=== PATIENT | male | born 1975 | race American Indian/Alaskan Native ===

== ENCOUNTER 2017-12-01 02:46 | Emergency (ER) | payer MEDICAID, MEDICARE, OTHER ==
[2017-12-01 02:47] VITALS: BMI 23.1
--- NOTE | 2017-12-01 04:43 | ED PDOC ---
Arrival/HPI - General EM Caveat: Intoxicated, Uncooperative <Adrien Landry - Last Filed: 12/01/17 05:29> - General Historian: Patient EM Caveat: Intoxicated, Uncooperative - History of Present Illness Time/Duration: Prior to Arrival Symptom Onset: Sudden Symptom Course: Unchanged Quality: Aching Severity Level: 10 <Javier Cowart - Last Filed: 12/01/17 06:29> - General Chief Complaint: Lower Extremity Problem/Injury Time Seen by Provider: 12/01/17 03:02 - History of Present Illness Narrative History of Present Illness (Text): 12/01/17 04:39 Patient is a 42 M who presents under the influence of alcohol with complaints of pain in his right foot after slipping on the curb of the sidewalk. Full HPI not obtained due to patient being under the influence. (Javier Cowart) Past Medical History - Provider Review Nursing Documentation Reviewed: Yes - Infectious Disease Hx of Infectious Diseases: None - Tetanus Immunization Tetanus Immunization: Unknown - Psychiatric Hx Depression: No Hx Emotional Abuse: No Hx Physical Abuse: No Hx Substance Use: Yes - Suicidal Assessment Feels Threatened In Home Enviroment: No <Javier Cowart - Last Filed: 12/01/17 06:29> Family/Social History - Physician Review Nursing Documentation Reviewed: Yes Family/Social History: Other (non-contributory) Smoking Status: Light Smoker < 10 Cigarettes Daily Hx Alcohol Use: Yes Frequency of alcohol use: Socially Hx Substance Use: Yes Substance used: marijuana Hx Substance Use Treatment: No <Javier Cowart - Last Filed: 12/01/17 06:29> Allergies/Home Meds <Adrien Landry - Last Filed: 12/01/17 05:29> <Javier Cowart - Last Filed: 12/01/17 06:29> Allergies/Adverse Reactions: Allergies Penicillins Adverse Reaction (Verified 12/01/17 03:04) ANAPHYLAXIS Home Medications: Home Meds Medication Instructions Recorded Confirmed No Known Home Med 12/01/1718 Review of Systems - Physician Review All systems were reviewed & negative as marked: Yes - Review of Systems Systems not reviewed;Unavailable: Intoxicated <Javier Cowart - Last Filed: 12/01/17 06:29> Physical Exam - Physical Exam Physical Exam Limitations: Intoxication, Uncooperative Vital Signs Reviewed: Yes Temperature: Afebrile Blood Pressure: Normal Pulse: Regular Respiratory Rate: Normal Appearance: Positive for: Well-Appearing, Non-Toxic Pain Distress: None Mental Status: Positive for: Agitated - Systems Exam Head: Present: Atraumatic, Normocephalic Pupils: Present: PERRL Extroacular Muscles: Present: EOMI Conjunctiva: Present: Normal Mouth: Present: Moist Mucous Membranes Neck: Present: Normal Range of Motion Respiratory/Chest: Present: Clear to Auscultation Cardiovascular: Present: Regular Rate and Rhythm, Normal S1, S2 Abdomen: Present: Guarding Neurological: Present: GCS=15, CN II-XII Intact, Speech Normal Skin: Present: Induration Psychiatric: Present: Alert, Normal Insight, Agitated, Intoxicated <Javier Cowart - Last Filed: 12/01/17 06:29> Vital Signs Temp Pulse Resp BP Pulse Ox 12/01/17 02:52 98.0 F 98 H 16 108/71 100 Medical Decision Making <Adrien Landry - Last Filed: 12/01/17 05:29> <Javier Cowart - Last Filed: 12/01/17 06:29> ED Course and Treatment: Patient Seen With Resident: In agreement with resident note which contains more details about the patient. Patient was seen and evaluated with resident. Came up with plan and treatment together. 42 year old male presents for alcohol intoxication. Plan: -- Tylenol -- Ankle right 3 views x-ray (Adrien Landry) 12/01/17 04:48 Ibuprofen for pain control Most likely fractured, will order CT lower extremity as well as send X-Ray of right ankle to [facility] for official read (Javier Cowart) - RAD Interpretation Radiology Orders: 12/01/17 03:22 ANKLE RIGHT 3 VIEWS ROUTINE [RAD] Stat 12/01/17 05:42 EXT LOWER W/O CONTRAST RIGHT [CT] Stat - Medication Orders Current Medication Orders: Discontinued Medications Acetaminophen (Tylenol 325mg Tab) 650 mg PO STAT STA Stop: 12/01/17 03:06 Last Admin: 12/01/17 03:10 Dose: 650 mg - Scribe Statement The provider has reviewed the documentation as recorded by the Scribe <Adrien Landry - Last Filed: 12/01/17 05:29> <Javier Cowart - Last Filed: 12/01/17 06:29> - Scribe Statement Raven Flynn Provider Lynda Attestation: All medical record entries made by the Scribe were at my direction and personally dictated by me. I have reviewed the chart and agree that the record accurately reflects my personal performance of the history, physical exam, medical decision making, and the department course for this patient. I have also personally directed, reviewed, and agree with the discharge instructions and disposition. (Adrien Landry) Disposition/Present on Arrival <Adrien Landry - Last Filed: 12/01/17 05:29> - Present on Arrival History of DVT/PE: No History of Uncontrolled Diabetes: No Urinary Catheter: No History of Decub. Ulcer: No History Surgical Site Infection Following: None <Javier Cowart - Last Filed: 12/01/17 06:29> - Disposition Forms: [employer] ([place])
--- NOTE | 2017-12-01 06:55 | CT ---
EXAM: CT Right Lower Extremity Without Intravenous Contrast, Ankle EXAM DATE/TIME: 12/01/2017 5:42 AM CLINICAL HISTORY: 42 years old, male; Injury or trauma; Fall; Initial encounter; Sprain or strain; Ankle; Right TECHNIQUE: Axial computed tomography images of the right ankle without intravenous contrast. All CT scans at this facility use one or more dose reduction techniques, viz.: automated exposure control; ma/kV adjustment per patient size (including targeted exams where dose is matched to indication; i.e. head); or iterative reconstruction technique. Coronal and sagittal reformatted images were created and reviewed. COMPARISON: DX - ANKLE RIGHT 3 VIEWS ROUTINE 2017-12-01 03:31 FINDINGS: Subcutaneous soft tissue swelling surrounds the calcaneus. There is a severely comminuted fracture of the calcaneus with numerous displaced fragments. The posterior aspect of the calcaneus is rotated slightly superiorly best seen on image 35 of sagittal reconstructions. On this image, there appears to be normal articulation with the talus, however more laterally, there is extension of numerous fracture lines into the calcaneal talar joint. Calcaneal fracture lines also extend to the articulation with the cuboid. There are no fractures of the cuboid cell identified. No fractures of the visualized portions of the tibia or fibula. IMPRESSION: Severely comminuted calcaneal fracture as described above.
--- NOTE | 2017-12-01 07:34 | ED PDOC ---
Physical Exam Vital Signs Temp Pulse Resp BP Pulse Ox 12/01/17 06:09 82 13 137/89 100 12/01/17 02:52 98.0 F 98 H 16 108/71 100 Medical Decision Making ED Course and Treatment: 12/01/17 07:00 Patient signed out to me by Dr. Landry. Pending Ortho consult. Patient currently sleeping. Dr. Bejarano paged. 12/01/17 07:05 CT Right Lower Extremity Without Intravenous Contrast, Ankle Creator : RADHIKA WHALEN FINDINGS: Subcutaneous soft tissue swelling surrounds the calcaneus. There is a severely comminuted fracture of the calcaneus with numerous displaced fragments. The posterior aspect of the calcaneus is rotated slightly superiorly best seen on image 35 of sagittal reconstructions. On this image, there appears to be normal articulation with the talus, however more laterally, there is extension of numerous fracture lines into the calcaneal talar joint. Calcaneal fracture lines also extend to the articulation with the cuboid. There are no fractures of the cuboid cell identified. No fractures of the visualized portions of the tibia or fibula. IMPRESSION: Severely comminuted calcaneal fracture as described above 12/01/17 08:20 Dr. Bejarano recommends well padded posterior and U splint and follow up with him with copy of imaging on CD. Splint placed by cut out markerPatrick Ayala and checked by me. Instructed on crutch walking. Advised to elevate and ice. Patient with steady crutch walking, discharged. No prescriptions in prior year on [employer] Aware. Advised on opioid risks. - RAD Interpretation Radiology Orders: 12/01/17 03:22 ANKLE RIGHT 3 VIEWS ROUTINE [RAD] Stat 12/01/17 05:42 EXT LOWER W/O CONTRAST RIGHT [CT] Stat - Medication Orders Current Medication Orders: Discontinued Medications Acetaminophen (Tylenol 325mg Tab) 650 mg PO STAT STA Stop: 12/01/17 03:06 Last Admin: 12/01/17 03:10 Dose: 650 mg - Scribe Statement The provider has reviewed the documentation as recorded by the Lilianaibsven Tillman Provider Scribe Attestation: All medical record entries made by the Scribe were at my direction and personally dictated by me. I have reviewed the chart and agree that the record accurately reflects my personal performance of the history, physical exam, medical decision making, and the department course for this patient. I have also personally directed, reviewed, and agree with the discharge instructions and disposition. Disposition/Present on Arrival - Present on Arrival Any Indicators Present on Arrival: No History of DVT/PE: No History of Uncontrolled Diabetes: No Urinary Catheter: No History of Decub. Ulcer: No History Surgical Site Infection Following: None - Disposition Have Diagnosis and Disposition been Completed?: Yes Diagnosis: Calcaneal fracture Disposition: HOME/ ROUTINE Disposition Time: 08:20 Patient Plan: Discharge Patient Problems: Current Active Problems Problem Status Onset Calcaneal fracture Acute Condition: STABLE Discharge Instructions (ExitCare): Heel Fracture Additional Instructions: Your prescription for Oxycodone/Acetaminophen should be used for severe pain. Oxycodone is an opiate and has a risk of addiction. It is not possible to predict how much it will take to become addicted. Prescriptions: Acetaminophen [Tylenol 325mg tab] 2 tab PO Q4H #30 tab Ibuprofen [Motrin] 600 mg PO Q6 #25 tab oxyCODONE/Acetaminophen [Percocet 5/325 mg Tab] 1 tab PO Q6 #10 tab Referrals: Alisia Stanford MD [Staff Provider] - Follow up with primary Forms: [employer] (Pashto), WORK NOTE
--- NOTE | 2017-12-01 08:44 | RAD ---
PROCEDURE: Right Ankle Radiographs. HISTORY: fell COMPARISON: None FINDINGS: BONES: There is a comminuted fracture of the calcaneus. Multiple fracture lines are seen. The talus is intact. JOINTS: Normal. No osteoarthritis. Ankle mortise maintained. Talar dome intact SOFT TISSUES: Normal. OTHER FINDINGS: None. IMPRESSION: There is a comminuted fracture of the calcaneus. Multiple fracture lines are seen. The talus is intact.
[2017-12-01 09:29] VITALS: BP 132/78; PULSE 86; RESP 18; TEMP 98; O2SAT 97
== END 2017-12-01 09:29 | disposition home or self-care (01) ==
LOC: ED 02:46
DX: S92.001A Unspecified fracture of right calcaneus, initial encounter for closed fracture (principal); W01.0XXA Fall on same level from slipping, tripping and stumbling without subsequent striking against object, initial encounter; Y92.480 Sidewalk as the place of occurrence of the external cause